=== PATIENT | female | born 1990 | race Caucasian/White ===

== ENCOUNTER 2016-07-24 06:56 | Inpatient (IN) | payer BC ==
[2016-07-24] MEDS ORDERED: Nalbuphine 20 MG/1 ML Amp IVPUSH PRN (13:33)
[2016-07-24] MEDS ORDERED: Sodium Chloride 0.9% 10 ML Syringe FLUSH PRN (13:33)
[2016-07-24] MEDS ORDERED: Lidocaine 1% 50 ML MDV INJECT ONE (13:33)
[2016-07-24] MEDS ORDERED: Lactated Ringers 1,000 ML IV SCH (13:45)
[2016-07-24] MEDS ORDERED: Oxytocin/Lactated Ringers 10 UNIT/1,000 ML BAG IV SCH (13:45)
--- NOTE | 2016-07-24 15:01 | PCM.PREANE ---
Preanesthetic Assessment - Procedure Proposed Procedure: Labor Epidural - Anesthesia/Transfusion/Family Hx Anesthesia History: Prior Anesthesia Without Reaction Family History of Anesthesia Reaction: No Transfusion History: No Prior Transfusion(s) Type of Transfusion Reactions: Reports: Unknown Intubation History: Unknown - Review of Systems General: No Symptoms Pulmonary: Other (Asthma) Cardiovascular: No Symptoms Gastrointestinal: No symptoms Neurological: No Symptoms Other: Reports: None - Physical Assessment NPO Status Date: 07/24/16 NPO Status Time: 12:00 Respiratory Rate: 15 Vital Signs: Last Vital Signs Temp 36.7 C 07/24/16 13:33 Pulse 90 07/24/16 13:33 Resp 15 07/24/16 13:33 BP 125/66 07/24/16 13:33 Pulse Ox Height: 1.68 m Weight: 82.1 kg ASA Class: 2 Mental Status: Alert & Oriented x3 Airway Class: Mallampati = 2 Dentition: Reports: Normal Dentition Thyro-Mental Finger Breadths: 3 Mouth Opening Finger Breadths: 3 ROM/Head Extension: Full Lungs: Clear to auscultation, Normal respiratory effort Cardiovascular: Regular Rate, Regular Rhythm - Lab Values: Laboratory Last Values WBC 12.16 K/mm3 (3.98-10.04) H 07/24/16 14:10 RBC 3.64 M/mm3 (3.98-5.22) L 07/24/16 14:10 Hgb 11.7 gm/L (11.2-15.7) 07/24/16 14:10 Hct 34.8 % (34.1-44.9) 07/24/16 14:10 MCV 95.6 fl (79.4-94.8) H 07/24/16 14:10 MCH 32.1 pg (25.6-32.2) 07/24/16 14:10 MCHC 33.6 g/dl (32.2-35.5) 07/24/16 14:10 RDW Std Deviation 43.5 fL (36.4-46.3) 07/24/16 14:10 Plt Count 192 K/mm3 (182-369) 07/24/16 14:10 MPV 10.4 fl (9.4-12.3) 07/24/16 14:10 Neut % (Auto) 77.2 % (34.0-71.1) H 07/24/16 14:10 Lymph % (Auto) 13.5 % (19.3-51.7) L 07/24/16 14:10 [place] % (Auto) 7.7 % (4.7-12.5) 07/24/16 14:10 Eos % (Auto) 1.1 (0.7-5.8) 07/24/16 14:10 Baso % (Auto) 0.1 % (0.1-1.2) 07/24/16 14:10 Neut # (Auto) 9.39 K/mm3 (1.56-6.13) H 07/24/16 14:10 Lymph # (Auto) 1.64 K/mm3 (1.18-3.74) 07/24/16 14:10 [place] # (Auto) 0.94 K/mm3 (0.24-0.36) H 07/24/16 14:10 Eos # (Auto) 0.13 K/mm3 (0.04-0.36) 07/24/16 14:10 Baso # (Auto) 0.01 K/mm3 (0.01-0.08) 07/24/16 14:10 Urine Color Yellow (Yellow) 07/24/16 07:56 Urine Appearance Clear (Clear) 07/24/16 07:56 Urine pH 6.5 (5.0-8.0) 07/24/16 07:56 Ur Specific [place] 1.015 (1.005-1.030) 07/24/16 07:56 Urine Protein Negative (Negative) 07/24/16 07:56 Urine Glucose (UA) Negative (Negative) 07/24/16 07:56 Urine Ketones Negative (Negative) 07/24/16 07:56 Urine Occult Blood Negative (Negative) 07/24/16 07:56 Urine Nitrite Negative (Negative) 07/24/16 07:56 Urine Bilirubin Negative (Negative) 07/24/16 07:56 Urine Urobilinogen 0.2 (0.2-1.0) 07/24/16 07:56 Ur Leukocyte Esterase Trace (Negative) H 07/24/16 07:56 - Allergies Allergies/Adverse Reactions: Allergies Allergy/AdvReac Type Severity Reaction Status Date / Time amoxicillin Allergy Vomiting Verified 06/29/15 22:38 - Blood Blood Available: No Product(s) Available: None - Anesthesia Plan Pre-Op Medication Ordered: None - Acknowledgements Anesthesia Type Planned: Epidural Pt an Appropriate Candidate for the Planned Anesthesia: Yes Alternatives and Risks of Anesthesia Discussed w Pt/Guardian: Yes Pt/Guardian Understands and Agrees with Anesthesia Plan: Yes PreAnesthesia Questionnaire HEENT History: Reports: None Respiratory History: Reports: Asthma, Other (See Below) Other Respiratory History: mild Genitourinary History: Reports: None 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: - Past Surgical History Head Surgeries/Procedures: Reports: None HEENT Surgical History: Reports: None Respiratory Surgical History: Reports: None Female Surgical History: Reports: Section Dermatological Surgical History: Reports: None - SUBSTANCE USE Smoking Status *Q: Current Every Day Smoker (8 years 5cig/day) Tobacco Use Within Last Twelve Months: Cigarettes Second Hand Smoke Exposure: No Recreational Drug Use History: No - HOME MEDS Home Medications: Home Meds Vit No.124/Iron/FA [ Vitamin Tablet] 1 tab PO DAILY 06/29/15 [ History] Ibuprofen [IJD: Ibuprofen] 600 mg PO Q4H PRN #30 tablet 07/01/15 [Rx] - CURRENT (IN HOUSE) MEDS Current Meds: Current Medications Lactated Ringer's (Ringers, Lactated) 1,000 mls @ 100 mls/hr IV ASDIRECTED GALDINO Lactated Ringer's (Ringers, Lactated) 1,000 mls @ 40 mls/hr IV ASDIRECTED GALDINO Oxytocin/Lactated Ringer's (Pitocin In Lr 10 Units/1,000 Ml) 10 unit in 1,000 mls @ 500 mls/hr IV ASDIRECTED GALDINO PRN Reason: Protocol Nalbuphine HCl (Nubain) 10 mg IVPUSH Q2H PRN PRN Reason: Pain (moderate 4-6) Sodium Chloride (Saline Flush) 10 ml FLUSH ASDIRECTED PRN PRN Reason: Keep Vein Open Discontinued Medications Lidocaine HCl (Xylocaine 1%) 20 ml INJECT ONETIME ONE Stop: 07/24/16 13:34
[2016-07-24] MEDS ORDERED: diphenhydrAMINE 50 MG/ML SDV IVPUSH PRN (15:09)
[2016-07-24] MEDS ORDERED: Ondansetron 4 MG/2 ML SDV IVPUSH PRN (15:09)
[2016-07-24] MEDS ORDERED: Meperidine PF 50 MG/ML Syringe IVPUSH PRN (15:09)
[2016-07-24] MEDS ORDERED: fentaNYL 100 MCG/2 ML SDV EPIDUR PRN (15:09)
[2016-07-24] MEDS ORDERED: Bupivacaine/fentaNYL/NS 100 ML Bag EPIDUR SCH (15:15)
[2016-07-24] MEDS: Lactated Ringers 1,000 ML IV SCH ×2 (15:20→16:32)
--- NOTE | 2016-07-24 17:51 | PCM.LDHP ---
L&D History of Present Illness - General Date of Service: 07/24/16 Admit Problem/Dx: Patient Status Order with Admit Dx/Problem 07/24/16 13:33 Patient Status [ADT] Routine Admission Diagnosis/Problem Admission Diagnosis/Problem 07/24/16 17:41 40-4/7 week intrauterine elective AROM induction of labor Source of Information: Patient History Limitations: Reports: No Limitations - History of Present Illness Introduction:: Eric is a 26-year-old 3 para 2001 a female who was due on 07/20/2069 placer presently at 40-4/7 weeks gestational age. She was seen in clinic today and noted to be 3+ cm dilated, 90% effaced, very soft, -2, anterior. Patient is requesting induction of labor and this was set up in the afternoon. . Artificial rupture membranes was then undertaken with resultant clear amniotic fluid. Urine history 3 para 2001. ENRIKE 07/20/2016 determined by a 9-4/7 week ultrasound. That ultrasound support about sounds 6 which were consistent with her initial ultrasound dating. Her course was remarkable for group B strep negative status, patient plans to nurse. She had some anemia in which time she was started on iron therapy. She has history of asthma which was stable during . She declined genetic screening. She desired epidural in labor. She desired to . She had Gardnerella vaginalis which was treated in . Review is delivered include the followin. Male born 11/03/2007 at 6 lbs. 14 oz.primary sectionchild's name is Enoc. 2. male infant born 07/04/2015 at 40 weeks gestational age7 lbs. 11 oz.child's name is Elvin Angelo course patient was seen on a regular basis throughout the care. She had normal weight gain with weight started at 157.2 pounds and ending at 181 pounds for a 24 pound weight gain. Her vital signs are stable throughout the entire course. Fundal height growth was appropriate. Laboratory testing and showed blood to be O+. Negative antibody screen. Platelets at first visit were 352,000. Hemoglobin then was 12.6 g/dL. Hepatitis B surface antigen and HIV assays were both negative. The media and gonorrhea both negative. Second trimester laboratory testing showed hemoglobin which is decreased at 11.3 and platelets which were normal at 259,000. Patient was started on iron therapy at that time. Diabetes screen was 103. Her group B strep screen was negative. Allergies amoxicillin which causes hives Medications: 1. vitamins daily 2. Iron sulfate 325 mg by mouth daily Past medical history: 1. Vaginal delivery 2VBAC 2015 2. Asthmastable during Past surgical history: 1. 2008 distress Family history mother with history of thyroidectomy on replacement father is alive and well. One brother and one sister alive and well. Maternal grandmother with heart surgery, arthritis and depression along with diabetes mellitus. Maternal grandfather is O2 dependent, COPD. Paternal grandmother health history not known. Paternal grandfather atherosclerotic heart disease. There are no bleeding, clotting or problems noted in the . Social history: Patient is , is Dain. They live in [place]. She does not use any significant muscle alcohol, drugs but does smoke 5-7 cigarettes per day. Review of systems: Skin-negative Cardiovascular-no exercise intolerance or chest pain Lungs-no significant asthma, wheezing or infectious symptoms noted and no shortness of breath Breasts-changes associated . GI-negative -changes associated Neurologic-negative Musculoskeletal-negative with exception of occasional edema Physical exam: General patient is well-developed, well-nourished, pleasant female stated age in no acute distress. Skin is warm and dry without lesions. Lungs are clear with good breath sounds in all lung [place]. Cardiovascular exam shows regular and rhythm without murmurs. Breast exam deferred having that done at first visit found to be normal. Abdomen is protuberant with fundal height of 40 cm, baby in vertex presentation. Cervix as described above. Was 3+ centimeters/90% effaced/very soft/-2/anterior Extremities and neurological exam are grossly within normal limits Pain Score: 7 - Related Data Allergies/Adverse Reactions: Allergies Allergy/AdvReac Type Severity Reaction Status Date / Time amoxicillin Allergy Vomiting Verified 06/29/15 22:38 Home Medications: Home Meds Vit No.124/Iron/FA [ Vitamin Tablet] 1 tab PO DAILY 06/29/15 [ History] Ibuprofen [IJD: Ibuprofen] 600 mg PO Q4H PRN #30 tablet 07/01/15 [Rx] Past Medical History HEENT History: Reports: None Respiratory History: Reports: Asthma, Other (See Below) Other Respiratory History: mild Genitourinary History: Reports: None 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: - Past Surgical History Head Surgeries/Procedures: Reports: None HEENT Surgical History: Reports: None Respiratory Surgical History: Reports: None Female Surgical History: Reports: Section Dermatological Surgical History: Reports: None Social & Family History - Family History Family Medical History: Noncontributory - Tobacco Use Smoking Status *Q: Current Every Day Smoker (8 years 5cig/day) Years of Tobacco use: 8 Packs/Tins Daily: 0.2 Used Tobacco, but Quit: No Second Hand Smoke Exposure: No - Caffeine Use Caffeine Use: Reports: None - Recreational Drug Use Recreational Drug Use: No H&P Review of Systems - Review of Systems: Review Of Systems: See Below L&D Exam - Exam Exam: See Below - Vital Signs Vital Signs: Last Vital Signs Temp 36.7 C 07/24/16 13:33 Pulse 90 07/24/16 13:33 Resp 15 07/24/16 15:01 BP 125/66 07/24/16 13:33 Pulse Ox Weight: 82.1 kg - Patient Data Lab Results Last 24 hrs: Laboratory Results - last 24 hr 07/24/16 07/24/16 07/24/16 Range/Units 07:56 14:10 14:10 WBC 12.16 H (3.98-10.04) K/mm3 RBC 3.64 L (3.98-5.22) M/mm3 Hgb 11.7 (11.2-15.7) gm/L Hct 34.8 (34.1-44.9) % MCV 95.6 H (79.4-94.8) fl MCH 32.1 (25.6-32.2) pg MCHC 33.6 (32.2-35.5) g/dl RDW Std Deviation 43.5 (36.4-46.3) fL Plt Count 192 (182-369) K/mm3 MPV 10.4 (9.4-12.3) fl Neut % (Auto) 77.2 H (34.0-71.1) % Lymph % (Auto) 13.5 L (19.3-51.7) % [place] % (Auto) 7.7 (4.7-12.5) % Eos % (Auto) 1.1 (0.7-5.8) Baso % (Auto) 0.1 (0.1-1.2) % Neut # (Auto) 9.39 H (1.56-6.13) K/mm3 Lymph # (Auto) 1.64 (1.18-3.74) K/mm3 [place] # (Auto) 0.94 H (0.24-0.36) K/mm3 Eos # (Auto) 0.13 (0.04-0.36) K/mm3 Baso # (Auto) 0.01 (0.01-0.08) K/mm3 Urine Color Yellow (Yellow) Urine Appearance Clear (Clear) Urine pH 6.5 (5.0-8.0) Ur Specific [place] 1.015 (1.005-1.030) Urine Protein Negative (Negative) Urine Glucose (UA) Negative (Negative) Urine Ketones Negative (Negative) Urine Occult Blood Negative (Negative) Urine Nitrite Negative (Negative) Urine Bilirubin Negative (Negative) Urine Urobilinogen 0.2 (0.2-1.0) Ur Leukocyte Esterase Trace H (Negative) Blood Type O POSITIVE Gel Antibody Screen Negative Result Diagrams: 07/24/16 14:10 Problem List Initiated/Reviewed/Updated: Yes Orders Last 24hrs: Active Orders 24 hr Category Date Time Status Patient Status [ADT] Routine ADT 07/24/16 13:33 Active Activity as Tolerated [RC] PFP Care 07/24/16 13:33 Active Communication Order [RC] ASDIRECTED Care 07/24/16 13:33 Active Communication Order [RC] ASDIRECTED Care 07/24/16 13:33 Active Communication Order [RC] ASDIRECTED Care 07/24/16 13:33 Active Communication Order [RC] ASDIRECTED Care 07/24/16 13:33 Active Notify Provider [RC] ASDIRECTED Care 07/24/16 13:33 Active Notify Provider [RC] PFP Care 07/24/16 13:33 Active Notify Provider [RC] PRN Care 07/24/16 13:33 Active Peripheral IV Care [RC] . DIRECTED Care 07/24/16 13:34 Active Verify Patient Consent Obtain [RC] ASDIRECTED Care 07/24/16 13:33 Active Vital Signs [RC] PER UNIT ROUTINE Care 07/24/16 13:33 Active Clear Liquid Diet [DIET] Diet 07/24/16 Lunch Active Bupivacaine/fentaNYL/NS [fentaNYL/Bupivacaine/NS 2 MCG- Med 07/24/16 15:15 Active 0.125% 100 ML] 100 ml EPIDUR ASDIRECTED Lactated Ringers [Ringers, Lactated] 1,000 ml Med 07/24/16 13:45 Active IV ASDIRECTED Lactated Ringers [Ringers, Lactated] 1,000 ml Med 07/24/16 13:45 Active IV ASDIRECTED Meperidine [Demerol] Med 07/24/16 15:09 Active 12.5 mg IVPUSH ONETIME PRN Nalbuphine [Nubain] Med 07/24/16 13:33 Active 10 mg IVPUSH Q2H PRN Ondansetron [Zofran] Med 07/24/16 15:09 Active 4 mg IVPUSH ONETIME PRN Oxytocin/Lactated Ringers [Pitocin in LR 10 Units/1,000 Med 07/24/16 13:45 Active ML] 10 unit in 1,000 ml IV ASDIRECTED Sodium Chloride 0.9% [Saline Flush] Med 07/24/16 13:33 Active 10 ml FLUSH ASDIRECTED PRN diphenhydrAMINE [Benadryl] Med 07/24/16 15:09 Active 25 mg IVPUSH Q6H PRN fentaNYL [Sublimaze] Med 07/24/16 15:09 Active 100 mcg EPIDUR Q3H PRN Electronic Heart Tones Ext w TOCO [WOMSER] Oth 07/24/16 13:33 Ordered Routine Electronic Heart Tones Internal [WOMSER] Per Unit Oth 07/24/16 13:33 Ordered Routine Peripheral IV Insertion Adult [OM.PC] Routine Oth 07/24/16 13:33 Ordered Peripheral IV Insertion Adult [OM.PC] Routine Oth 07/24/16 13:33 Ordered Resuscitation Status Routine Resus Stat 07/24/16 13:33 Ordered Medication Orders Diphenhydramine HCl (Benadryl) 25 mg IVPUSH Q6H PRN PRN Reason: Pruritis Fentanyl (Sublimaze) 100 mcg EPIDUR Q3H PRN PRN Reason: Pain Last Admin: 07/24/16 16:17 Dose: 100 mcg Fentanyl/Bupivacaine HCl (Fentanyl/Bupivacaine/Ns 2 Mcg-0.125% 100 Ml) 100 ml EPIDUR ASDIRECTED GALDINO Last Admin: 07/24/16 16:18 Dose: 100 ml Lactated Ringer's (Ringers, Lactated) 1,000 mls @ 100 mls/hr IV ASDIRECTED GALDINO Last Admin: 07/24/16 16:32 Dose: 100 mls/hr Infusion: 07/24/16 16:32 Dose: 100 mls/hr Admin: 07/24/16 15:20 Dose: 100 mls/hr Lactated Ringer's (Ringers, Lactated) 1,000 mls @ 40 mls/hr IV ASDIRECTED GALDINO Oxytocin/Lactated Ringer's (Pitocin In Lr 10 Units/1,000 Ml) 10 unit in 1,000 mls @ 500 mls/hr IV ASDIRECTED GALDINO PRN Reason: Protocol Meperidine HCl (Demerol) 12.5 mg IVPUSH ONETIME PRN PRN Reason: Shivering Nalbuphine HCl (Nubain) 10 mg IVPUSH Q2H PRN PRN Reason: Pain (moderate 4-6) Ondansetron HCl (Zofran) 4 mg IVPUSH ONETIME PRN PRN Reason: Nausea/Vomiting Sodium Chloride (Saline Flush) 10 ml FLUSH ASDIRECTED PRN PRN Reason: Keep Vein Open Assessment/Plan Comment:: Assessment: 40-4/7 week intrauterine , elective induction of labor with artificial rupture murmurs 2. History of previous section with first , has successfully . 3. Group B strep screen 4. Patient desires epidural in labor E 5. Patient plans to nurse. Plan: 1. Artificial rupture membranes induction-just a spontaneous vaginal delivery. 2. Support nursing plans 3. Epidural in labor and delivery. 4. Routine precautions for baby Vacanti including labs, consent for C- section and , continuous electronic monitoring labor, alerting anesthesia and surgery that there is a patient laboring.
--- NOTE | 2016-07-24 18:01 | PCM.SN ---
- Free Text/Narrative Note: Eric is a 26-year-old 3 now para 3003 white female who is elective. Induced with artificial rupture membranes earlier today. She is a candidate and underwent placement of IV, signed consents for and for C- section, had laboratory tests done and was on continuous monitoring when artificial rupture membranes was undertaken. This resulted in clear amniotic fluid. The patient progressed rapidly to complete and began having some decelerations of heart rate. Baby was noted to be in occiput posterior position. Discussions held with patient as to intervention with a vacuum extractor. The due to, risks, benefits, limitations and potential competitions of it were discussed with her in detail. She appeared to understand. Reported that she had had this with her last delivery. Vacuum extraction undertaken-in the course of 2 contractions patient delivered the baby in a direct occiput posterior position over an intact perineum. The delivery occurred at 1726 hrs. on 07/24/2016. A male with Apgars of 8 and 9 and weighing 8 pounds, 6 ounces and was 21 inches in length. He was delivered by vacuum extraction delivery. The baby was placed on mom's abdomen and nose and mouth were bulb suctioned. The cord was clamped 2 and the cut the cord. It had 3 vessels. The placenta delivered intact at 1730 hrs., in a Schultze presentation and appeared complete. Pitocin was administered after delivery of the baby. The perineum was noted to be intact. Estimated blood loss is 100 mL. Patient plans to nurse.
[2016-07-24] MEDS ORDERED: Acetaminophen 325 MG Tab PO PRN (18:20)
[2016-07-24] MEDS ORDERED: Docusate Sodium 100 MG Cap PO PRN (18:20)
[2016-07-24] MEDS ORDERED: Bupivacaine 0.25% 10 ML SDV ONE (18:20)
[2016-07-24] MEDS ORDERED: Lanolin 100% Cream 7 GM Tube TOP PRN (18:20)
[2016-07-24] MEDS ORDERED: Witch Hazel Medicated Pads 100/Jar TOP PRN (18:20)
[2016-07-24] MEDS ORDERED: Benzocaine/Menthol 20%-0.5% Spray 56 GM Canister TOP PRN (18:20)
[2016-07-24] MEDS: Ibuprofen 600 MG Tab PO PRN (19:54)
[2016-07-25] MEDS: Ibuprofen 600 MG Tab PO PRN ×3 (02:53→22:00)
--- NOTE | 2016-07-25 07:47 | PCM48HPAN ---
Post Anesthesia Note - EVALUATION WITHIN 48HRS OF ANESTHETIC Vital Signs in Normal Range: Yes Patient Participated in Evaluation: Yes Respiratory Function Stable: Yes Airway Patent: Yes Cardiovascular Function Stable: Yes Hydration Status Stable: Yes Pain Control Satisfactory: Yes Nausea and Vomiting Control Satisfactory: Yes Mental Status Recovered: Yes
--- NOTE | 2016-07-26 10:35 | PCM.DCSUM1 ---
Discharge Summary - Hospital Course Free Text/Narrative:: [facility] Provider Simple Note Patient Name: KENDAL BERNARDO Date of : 89 Patient Status: Inpatient Attending Provider: Johnathon Martin Date: 07/24/16 17:54 Initialization Date: 07/24/16 17:54 - Free Text/Narrative Note: Eric is a 26-year-old 3 now para 3003 white female who is elective. Induced with artificial rupture membranes earlier today. She is a candidate and underwent placement of IV, signed consents for and for C- section, had laboratory tests done and was on continuous monitoring when artificial rupture membranes was undertaken. This resulted in clear amniotic fluid. The patient progressed rapidly to complete and began having some decelerations of heart rate. Baby was noted to be in occiput posterior position. Discussions held with patient as to intervention with a vacuum extractor. The due to, risks, benefits, limitations and potential competitions of it were discussed with her in detail. She appeared to understand. Reported that she had had this with her last delivery. Vacuum extraction undertaken-in the course of 2 contractions patient delivered the baby in a direct occiput posterior position over an intact perineum. The delivery occurred at 1726 hrs. on 07/24/2016. A male with Apgars of 8 and 9 and weighing 8 pounds, 6 ounces and was 21 inches in length. He was delivered by vacuum extraction delivery. The baby was placed on mom's abdomen and nose and mouth were bulb suctioned. The cord was clamped 2 and the cut the cord. It had 3 vessels. The placenta delivered intact at 1730 hrs., in a Schultze presentation and appeared complete. Pitocin was administered after delivery of the baby. The perineum was noted to be intact. Estimated blood loss is 100 mL. Patient plans to nurse. HPI Initial Comments: [facility] Provider Simple Note Patient Name: KENDAL BERNARDO Date of : [birth year] Patient Status: Inpatient Attending Provider: Johnathon Martin Date: 07/24/16 17:54 Initialization Date: 07/24/16 17:54 - Free Text/Narrative Note: Eric is a 26-year-old 3 now para 3003 white female who is elective. Induced with artificial rupture membranes earlier today. She is a candidate and underwent placement of IV, signed consents for and for C- section, had laboratory tests done and was on continuous monitoring when artificial rupture membranes was undertaken. This resulted in clear amniotic fluid. The patient progressed rapidly to complete and began having some decelerations of heart rate. Baby was noted to be in occiput posterior position. Discussions held with patient as to intervention with a vacuum extractor. The due to, risks, benefits, limitations and potential competitions of it were discussed with her in detail. She appeared to understand. Reported that she had had this with her last delivery. Vacuum extraction undertaken-in the course of 2 contractions patient delivered the baby in a direct occiput posterior position over an intact perineum. The delivery occurred at 1726 hrs. on 07/24/2016. A male infant with Apgars of 8 and 9 and weighing 8 pounds, 6 ounces and was 21 inches in length. He was delivered by vacuum extraction delivery. The baby was placed on mom's abdomen and nose and mouth were bulb suctioned. The cord was clamped 2 and the cut the cord. It had 3 vessels. The placenta delivered intact at 1730 hrs., in a Schultze presentation and appeared complete. Pitocin was administered after delivery of the baby. The perineum was noted to be intact. Estimated blood loss is 100 mL. Patient plans to nurse. Brief History: [facility] . Provider Simple Note. Patient Name : KENDAL BERNARDO [facility] Record Number: [id number]. Date of : [birth year]Patient Status: Inpatient. Attending Provider: Johnathon Martin FAccount Number : [id number]. Date: 07/24/16 17:54Initialization Date: 07/24/16 17:54. - Free Text/Narrative. Note: Eric is a 26-year-old 3 now para 3003 white female who is elective. Induced with artificial rupture membranes earlier today. She is a candidate and underwent placement of IV, signed consents for and for , had laboratory tests done and was on continuous monitoring when artificial rupture membranes was undertaken. This resulted in clear amniotic fluid. The patient progressed rapidly to complete and began having some decelerations of heart rate. Baby was noted to be in occiput posterior position. Discussions held with patient as to intervention with a vacuum extractor. The due to, risks, benefits, limitations and potential competitions of it were discussed with her in detail. She appeared to understand. Reported that she had had this with her last delivery. Vacuum extraction undertaken-in the course of 2 contractions patient delivered the baby in a direct occiput posterior position over an intact perineum. The delivery occurred at 1726 hrs. on 07/24/2016. A male with Apgars of 8 and 9 and weighing 8 pounds, 6 ounces and was 21 inches in length. He was delivered by vacuum extraction delivery. The baby was placed on mom's abdomen and nose and mouth were bulb suctioned. The cord was clamped 2 and the cut the cord. It had 3 vessels. The placenta delivered intact at 1730 hrs., in a Schultze presentation and appeared complete. Pitocin was administered after delivery of the baby. The perineum was noted to be intact. Estimated blood loss is 100 mL. Patient plans to nurse. - Discharge Data Discharge Date: 07/26/16 Discharge Disposition: Home, Self-Care 01 Condition: Good - Discharge Diagnosis/Problem(s) (1) Delivery normal SNOMED Code(s): 47578149 ICD Code: O80 - ENCOUNTER FOR FULL-TERM UNCOMPLICATED DELIVERY; Z37.9 - OUTCOME OF DELIVERY, UNSPECIFIED Status: Acute Current Visit: Yes (2) 40 weeks gestation of SNOMED Code(s): 46802428 ICD Code: Z3A.40 - 40 WEEKS GESTATION OF Status: Acute Current Visit: Yes - Patient Summary/Data Complications: None Consults: None Hospital Course: Uneventful - Patient Instructions Diet: Heart Healthy Diet Driving: Do Not Drive Showering/Bathing: May Shower (48 hours) Notify Provider of: Fever, Increased Pain, Swelling and Redness, Drainage, Nausea and/or Vomiting - Discharge Plan Home Medications: Home Meds Vit No.124/Iron/FA [ Vitamin Tablet] 1 tab PO DAILY 06/29/15 [ History] Ibuprofen [IJD: Ibuprofen] 600 mg PO Q4H PRN #30 tablet 07/01/15 [Rx] Referrals: Johnathon Martin MD [Physician] - (6 weeks) - Discharge Summary/Plan Comment DC Time >30 min.: No - Patient Data Vitals - Most Recent: Last Vital Signs Temp 97.6 F 07/26/16 07:40 Pulse 60 07/26/16 07:40 Resp 16 07/26/16 07:40 BP 100/61 07/26/16 07:40 Pulse Ox 98 07/26/16 07:40 Weight - Most Recent: 181 lb I&O - Last 24 hours: Intake & Output 07/25/16 07/26/16 07/26/16 22:59 06:59 14:59 Intake Total 90 Balance 90 Med Orders - Current: Current Medications Acetaminophen (Tylenol) 650 mg PO Q4H PRN PRN Reason: mild pain or fever Benzocaine/Menthol (Dermoplast Pain Relief [place]) 0 gm TOP ASDIRECTED PRN PRN Reason: Perineal Comfort Measure Last Admin: 07/24/16 19:56 Dose: 1 canister Docusate Sodium (Colace) 100 mg PO BID PRN PRN Reason: Constipation Emollient Ointment (Lansinoh Hpa) 0 gm TOP ASDIRECTED PRN PRN Reason: Sore Nipples Last Admin: 07/26/16 01:38 Dose: 1 tube Ibuprofen (Motrin) 600 mg PO Q4H PRN PRN Reason: Mild pain or fever Last Admin: 07/25/16 22:00 Dose: 600 mg Witch Geeta (Tucks) 1 pad TOP ASDIRECTED PRN PRN Reason: Hemorrhoid pain Last Admin: 07/24/16 19:56 Dose: 1 tub Discontinued Medications Bupivacaine HCl (Sensorcaine-Mpf 0.25%) 10 ml .ROUTE .STK-MED ONE Stop: 07/24/16 18:21 Diphenhydramine HCl (Benadryl) 25 mg IVPUSH Q6H PRN PRN Reason: Pruritis Fentanyl (Sublimaze) 100 mcg EPIDUR Q3H PRN PRN Reason: Pain Last Admin: 07/24/16 16:17 Dose: 100 mcg Fentanyl/Bupivacaine HCl (Fentanyl/Bupivacaine/Ns 2 Mcg-0.125% 100 Ml) 100 ml EPIDUR ASDIRECTED GALDINO Last Admin: 07/24/16 16:18 Dose: 100 ml Lactated Ringer's (Ringers, Lactated) 1,000 mls @ 100 mls/hr IV ASDIRECTED GALDINO Last Admin: 07/24/16 16:32 Dose: 100 mls/hr Lactated Ringer's (Ringers, Lactated) 1,000 mls @ 40 mls/hr IV ASDIRECTED GALDINO Oxytocin/Lactated Ringer's (Pitocin In Lr 10 Units/1,000 Ml) 10 unit in 1,000 mls @ 500 mls/hr IV ASDIRECTED GALDINO PRN Reason: Protocol Last Admin: 07/24/16 17:30 Dose: 500 mls/hr Lidocaine HCl (Xylocaine 1%) 20 ml INJECT ONETIME ONE Stop: 07/24/16 13:34 Last Admin: 07/24/16 18:59 Dose: Not Given Meperidine HCl (Demerol) 12.5 mg IVPUSH ONETIME PRN PRN Reason: Shivering Nalbuphine HCl (Nubain) 10 mg IVPUSH Q2H PRN PRN Reason: Pain (moderate 4-6) Ondansetron HCl (Zofran) 4 mg IVPUSH ONETIME PRN PRN Reason: Nausea/Vomiting Sodium Chloride (Saline Flush) 10 ml FLUSH ASDIRECTED PRN PRN Reason: Keep Vein Open *Q Meaningful Use (DIS) - VTE *Q VTE Criteria *Q: - Stroke *Q Stroke Criteria *Q: - AMI *Q AMI Criteria *Q:
[2016-07-26 11:19] VITALS: BP 115/63
== END 2016-07-26 11:30 | disposition home or self-care (01) | DRG 560 ==
LOC: JD.WOMH 06:56 → JD.OB 13:06 → OBSVTOIN 17:26
PROVIDERS: ADMIT Obstetrics & Gynecology; ATTEND Obstetrics & Gynecology
PROC: 10D07Z6 Extraction of Products of Conception, Vacuum, Via Natural or Artificial Opening (ICD-10-PCS; principal; 2016-07-24)
PROC: 10907ZC Drainage of Amniotic Fluid, Therapeutic from Products of Conception, Via Natural or Artificial Opening (ICD-10-PCS; 2016-07-24)
PROC: 00HU33Z Insertion of Infusion Device into Spinal Canal, Percutaneous Approach (ICD-10-PCS; 2016-07-24)
PROC: 3E0R3CZ (ICD-10-PCS; 2016-07-24)
DX: O99.334 Smoking (tobacco) complicating childbirth (principal); Z3A.41 41 weeks gestation of pregnancy; Z37.0 Single live birth; O69.81X0 Labor and delivery complicated by cord around neck, without compression, not applicable or unspecified; O34.211 Maternal care for low transverse scar from previous cesarean delivery; N85.8 Other specified noninflammatory disorders of uterus; Z88.1 Allergy status to other antibiotic agents
CPT/HCPCS: 36415; 81003; 85025; 85027; 86850; 86900; 86901; A9270-GY; J2590; J3010; J7120